=== PATIENT | female | born 1940 | race Asian ===

== ENCOUNTER 2016-12-06 08:27 | Day surgery (SDC) | payer OTHER | END 2016-12-06 12:35 | LOC: OR 08:27 | PROC: 0DJD8ZZ Inspection of Lower Intestinal Tract, Via Natural or Artificial Opening Endoscopic (ICD-10-PCS; principal; 2016-12-06) | DX: K64.8 Other hemorrhoids (principal); Z12.11 Encounter for screening for malignant neoplasm of colon | CPT/HCPCS: G0121; J2001; J2250; J2704 ==

== ENCOUNTER 2017-07-09 10:49 | Outpatient (CLI) | payer OTHER ==
[2017-07-09] MEDS ORDERED: LOSA50TA PO (18:27)
[2017-07-09] MEDS ORDERED: AMLODIPINE BESYLATE PO (18:28)
[2017-07-09] MEDS ORDERED: SERT50TA PO (18:28)
[2017-07-09] MEDS ORDERED: ANAS1TAB PO (18:29)
== END 2017-07-09 10:54 | disposition short-term general hospital (02) ==
LOC: AMB 10:49
DX: R53.1 Weakness (principal); W18.39XA Other fall on same level, initial encounter; Y92.098 Other place in other non-institutional residence as the place of occurrence of the external cause
CPT/HCPCS: A0425; A0427

== ENCOUNTER 2017-07-09 10:58 | Observation (INO) | payer OTHER ==
[2017-07-09] VITALS (10 sets, daily range): BP systolic 111–184; BP diastolic 42–78; TEMP 99–99.5
[~2017-07-09] VITALS: Ht 165.1 cm; Wt 106.8 kg
[2017-07-09 11:43] LABS: PLATELET COUNT 225 K/uL (152-353)
[2017-07-09 11:46] LABS: POTASSIUM 3.7 mmol/L (3.6-5.2); SODIUM 134 mmol/L (136-145)
[2017-07-09 16:16] LABS: PLATELET COUNT 212 K/uL (152-353)
[2017-07-09 16:25] LABS: POTASSIUM 3.4 mmol/L (3.6-5.2); SODIUM 137 mmol/L (136-145)
[2017-07-09] MEDS ORDERED: LOSA50TA PO (18:27)
[2017-07-09] MEDS ORDERED: AMLODIPINE BESYLATE PO (18:28)
[2017-07-09] MEDS ORDERED: SERT50TA PO (18:28)
[2017-07-09] MEDS ORDERED: ANAS1TAB PO (18:29)
[2017-07-10] VITALS (7 sets, daily range): BP systolic 102–153; BP diastolic 44–65; TEMP 98–99.3
[2017-07-10 05:24] LABS: PLATELET COUNT 202 K/uL (152-353)
[2017-07-10 10:51] LABS: POTASSIUM 3.4 mmol/L (3.6-5.2); SODIUM 136 mmol/L (136-145)
[2017-07-10 17:06] LABS: POTASSIUM 3.6 mmol/L (3.6-5.2); SODIUM 143 mmol/L (136-145)
[2017-07-11 04:00] VITALS: BP 143/58; TEMP 98.4
[2017-07-11 06:09] LABS: POTASSIUM 3.5 mmol/L (3.6-5.2); SODIUM 138 mmol/L (136-145)
[2017-07-11 08:05] VITALS: BP 150/59; TEMP 99.1
[2017-07-11 12:19] VITALS: BP 146/57; TEMP 98.9
[2017-07-11 13:52] LABS: POTASSIUM 3.4 mmol/L (3.6-5.2); SODIUM 139 mmol/L (136-145)
[2017-07-11 15:55] VITALS: BP 146/63; TEMP 98.8
== END 2017-07-11 16:00 | disposition home or self-care (01) ==
LOC: ED 10:58 → MED/SURG 17:45
PROVIDERS: Internal Medicine; ADMIT Family Medicine
DX: M62.82 Rhabdomyolysis (principal); Z91.81 History of falling; J01.80 Other acute sinusitis; Z79.899 Other long term (current) drug therapy; E86.0 Dehydration
CPT/HCPCS: 36415; 80053; 81000; 82306; 82550; 82553; 84100; 84439; 84443; 84484; 85027; 85651; 93005; 96360; 96365; 96366; 96372; 99220; 99284; G0378; J1650

== ENCOUNTER 2021-04-21 11:13 | Outpatient (CLI) | payer OTHER ==
[~2021-04-21 11:13] MED LIST: AMLODIPINE BESYLATE PO; ANAS1TAB PO; LOSA50TA PO; SERT50TA PO
[2021-04-21 11:40] LABS: PLATELET COUNT 271 K/uL (152-353)
[2021-04-21 11:59] LABS: POTASSIUM 3.5 mmol/L (3.6-5.2); SODIUM 137 mmol/L (136-145)
== END 2021-04-21 19:30 | disposition home or self-care (01) ==
LOC: CT 11:13
PROVIDERS: ATTEND Nurse Practitioner Family
DX: R68.84 Jaw pain (principal)
CPT/HCPCS: 36415; 80053; 82550; 82553; 84484; 85027

== ENCOUNTER 2022-12-01 22:06 | Emergency (ER) | payer OTHER ==
[~2022-12-01] VITALS: Ht 165.1 cm; Wt 97.1 kg
[2022-12-01 22:17] VITALS: TEMP 97.3
[2022-12-01 23:13] LABS: PLATELET COUNT 239 K/uL (152-353)
[2022-12-01 23:43] LABS: POTASSIUM 3.6 mmol/L (3.6-5.2)
[2022-12-02 00:46] VITALS: BP 168/71
== END 2022-12-02 00:46 | disposition home or self-care (01) ==
LOC: ED 22:06
PROVIDERS: Family Medicine
DX: R10.9 Unspecified abdominal pain (principal); R14.3 Flatulence; K21.9 Gastro-esophageal reflux disease without esophagitis; F41.9 Anxiety disorder, unspecified; R35.89 Other polyuria; I10 Essential (primary) hypertension; R06.02 Shortness of breath
CPT/HCPCS: 80053; 81002; 82150; 82550; 83690; 83880; 84484; 85027; 85379; 85610; 85730; 93005; 99282